=== PATIENT | male | born 1985 | race Caucasian/White ===

== ENCOUNTER 2017-07-18 14:07 | Inpatient (IN) | payer BC ==
[~2017-07-18] VITALS: Ht 177.8 cm; Wt 86.2 kg
[2017-07-22] MEDS ORDERED: PROTONIX40 MG PO (12:11)
[2017-07-22] MEDS ORDERED: CIPRO500 MG PO (12:11)
[2017-07-22] MEDS ORDERED: LEVSIN/SL0.125 MG PO (12:12)
== END 2017-07-22 12:36 | disposition home or self-care (01) | DRG 440 ==
LOC: ER 14:07 → SEC-K 22:19 → MEDI 07-19 00:43
PROC: BW21Y0Z Computerized Tomography (CT Scan) of Abdomen and Pelvis using Other Contrast, Unenhanced and Enhanced (ICD-10-PCS; principal; 2017-07-18)
PROC: BW40ZZZ Ultrasonography of Abdomen (ICD-10-PCS; 2017-07-18)
PROC: BF37ZZZ Magnetic Resonance Imaging (MRI) of Pancreas (ICD-10-PCS; 2017-07-19)
DX: K85.80 Other acute pancreatitis without necrosis or infection (principal)